=== PATIENT | female | born 1940 | race Caucasian/White ===

== ENCOUNTER 2017-12-12 12:50 | Day surgery (SDC) | payer MEDICARE ==
[~2017-12-12 12:50] MED LIST: HEPARIN SODIUM,PORCINE 5,000 UNIT/ML 1 ML VIAL SQ ONE; Pre Op ABX Message 1 EACH MISC MISCELLANE ONE
[2017-12-12] MEDS ORDERED: fentaNYL (PF) 50 MCG/ML 2 ML AMP IV PRN (13:26)
[2017-12-12] MEDS ORDERED: MIDAZOLAM 2 MG/2 ML VIAL IV PRN (13:26)
[2017-12-12] MEDS ORDERED: DEXAMETHASONE SOD PHOSPHATE 10 MG/ML 1 ML VIAL IV ONE (13:26)
[2017-12-12] MEDS ORDERED: LACTATED RINGERS 1,000 ML IV SCH (13:26)
[2017-12-12] MEDS ORDERED: ONDANSETRON 4 MG/2 ML VIAL IVP ONE (13:26)
[2017-12-12] MEDS ORDERED: LIDOCAINE 1% 20 ML VIAL (10MG/ML) FOR IV START INTRADERMA ONE (13:50)
[2017-12-12] MEDS ORDERED: fentaNYL (PF) 50 MCG/ML 2 ML AMP ONE (16:09)
[2017-12-12] MEDS ORDERED: LIDOCAINE 1% INJ 10MG/ML (20 ML MDV) ONE (16:09)
[2017-12-12] MEDS ORDERED: MIDAZOLAM 2 MG/2 ML VIAL ONE (16:09)
[2017-12-12] MEDS ORDERED: PROPOFOL 10 MG/ML 20 ML VIAL IV ONE (16:09)
[2017-12-12] MEDS ORDERED: ePHEDrine SULFATE/0.9% NACL/PF 50 MG/5 ML SYRINGE IV ONE (16:09)
[2017-12-12] MEDS ORDERED: SUCCINYLCHOLINE CHLORIDE 100 MG/5 ML SYR IV ONE (16:09)
[2017-12-12] MEDS ORDERED: ceFAZolin 1,000 MG VIAL IVPB ONE (16:35)
[2017-12-12] MEDS ORDERED: LACTATED RINGERS 1,000 ML IV ONE (16:42)
[2017-12-12] MEDS ORDERED: ONDANSETRON 4 MG/2 ML VIAL IVP PRN (17:08)
[2017-12-12] MEDS ORDERED: NALOXONE 0.4 MG/ML 1 ML VIAL IV PRN (17:08)
[2017-12-12] MEDS ORDERED: HYDROmorphone 0.5 MG/0.5 ML SYRINGE IVP PRN (17:08)
[2017-12-12] MEDS ORDERED: ACETAMINOPHEN TAB 325 MG TAB PO PRN (17:08)
--- NOTE | 2017-12-12 17:15 | P.OP ---
Date of Procedure: 12/12/17 Procedure(s) Performed: PREOPERATIVE DIAGNOSIS: Right arm hematoma POSTOPERATIVE DIAGNOSIS: Same PROCEDURE: Incision and drainage large right arm hematoma SURGEON: Sierra EBL: 15 mL new blood, 300 mL old clot ANESTHESIA: General COMPLICATIONS: None OPERATIVE PROCEDURE: Patient was placed in the operative table in the supine position. The right arm was prepped and draped in usual sterile fashion. A longitudinal incision was made overlying the hematoma site. Less than 1 cm below the skin surface a large hematoma and cavity was encountered. Proximally 3 under cc of bloody clots were removed. Cultures were taken. The area was irrigated thoroughly with saline. No active bleeding was seen. The wound was packed with a lightly moistened Kerlix roll. Sterile dressings were applied. DISPOSITION: Stable to recovery room
[2017-12-12] MEDS: LACTATED RINGERS 1,000 ML IV ONE (18:24)
[2017-12-12 20:15] VITALS: BMI 27.8
[2017-12-12] MEDS: HYDROcodone/APAP 5-325MG 1 EACH TAB PO PRN (20:16)
[2017-12-12] MEDS ORDERED: LATANOPROST 0.005% OPHTH DROPS 2.5 ML BTL BOTH EYES SCH (21:00)
[2017-12-12] MEDS ORDERED: SENNOSIDES 8.6 MG TAB PO SCH (21:00)
[2017-12-12] MEDS ORDERED: ATORVASTATIN 10 MG TAB PO SCH (21:00)
[2017-12-12] MEDS: CALCIUM CARB-VIT D 500MG-200UN 1 EACH TAB PO SCH (21:16)
[2017-12-12] MEDS: CITALOPRAM HYDROBROMIDE 20 MG TAB PO SCH (21:16)
[2017-12-12] MEDS: DIAZEPAM 5 MG TAB PO SCH (21:16)
[2017-12-12] MEDS: amLODIPine 5 MG TAB PO SCH (21:16)
[2017-12-13] MEDS: HYDROcodone/APAP 10-325MG 1 EACH TAB PO PRN ×2 (00:28→06:32)
[2017-12-13] MEDS: HEPARIN SODIUM,PORCINE 5,000 UNIT/ML 1 ML VIAL SQ SCH ×2 (00:28→10:38)
[2017-12-13] MEDS: LACTATED RINGERS 1,000 ML IV ONE (06:34)
[2017-12-13] MEDS ORDERED: PANTOPRAZOLE 40 MG TABLET PO SCH (07:30)
[2017-12-13] MEDS ORDERED: MONTELUKAST 10 MG TAB PO SCH (09:00)
[2017-12-13] MEDS ORDERED: POTASSIUM CHLORIDE ER 20 MEQ TAB.ER PO SCH (09:00)
[2017-12-13] MEDS ORDERED: ALLOPURINOL 300 MG TAB PO SCH (09:00)
[2017-12-13] MEDS ORDERED: FUROSEMIDE 40 MG TAB PO SCH (09:00)
[2017-12-13 09:11] VITALS: BP 128/65; PULSE 84; RESP 16; TEMP 98.8
--- NOTE | 2017-12-13 10:35 | P.DS ---
<Alecia Bustos - Last Filed: 12/13/17 10:23> Providers Expected date of discharge: 12/13/17 Attending physician: Kirit Esquivel Primary care physician: [facility] Hospital Course: 77-year-old female was admitted on elective basis to undergo an incision and drainage of a large right arm hematoma. Operative report reviewed indicated 300 mL's of an old clot and 15 urinalysis of new blood was removed. Patient tolerated the procedure. On the day of discharge the dressing was changed to the right forearm small amount of bloody drainage noted the packing was removed with new lightly moistened Kerlix roll placed wrapped with Kerlix and an Vicente wrap. Patient was felt to be clinically stable and appropriate proceed with a discharge to home. Impression discharge diagnosis Status post incision and drainage of a large right arm hematoma The above impression and plan of care have been discussed and directed by signing physician. Alecia Bustos nurse practitioner acting as scribe for signing physician. Plan - Discharge Summary New Discharge Prescriptions: Continue Aspirin EC [Ecotrin Low Dose] 81 mg PO DAILY Ergocalciferol [Vitamin D2 (DRISDOL)] 50,000 unit PO Q14D Calcium Carb-Vit D 500Mg-200Un [Oscal 500+D] 1 each PO BID Simvastatin [Zocor] 20 mg PO HS Montelukast [Singulair] 10 mg PO DAILY Latanoprost Ophth [Xalatan 0.005%] 1 drops BOTH EYES HS Furosemide [Lasix] 40 mg PO DAILY Diazepam [Valium] 5 mg PO HS Sennosides [Senokot] 8.6 mg PO HS Omeprazole [PriLOSEC] 20 mg PO AC-BID amLODIPine [Norvasc] 5 mg PO BID Potassium Chloride ER [K-Dur 20] 20 meq PO DAILY Multivitamin/Iron/Folic Acid [Centrum Complete Multivit Tab] 1 each PO DAILY Citalopram Hydrobromide [CeleXA] 20 mg PO BID Doxycycline Hyclate 100 mg PO DAILY Allopurinol 300 mg PO DAILY Cephalexin [Keflex] 250 cap PO TID Hydrocodone/Acetaminophen [Assonet 10-325] 1 each PO Q6H PRN #15 tablet PRN Reason: Pain Discharge Medication List Aspirin EC [Ecotrin Low Dose] 81 mg PO DAILY 05/15/14 [History] Calcium Carb-Vit D 500Mg-200Un [Oscal 500+D] 1 each PO BID 05/15/14 [History] Citalopram Hydrobromide [CeleXA] 20 mg PO BID 05/15/14 [History] Diazepam [Valium] 5 mg PO HS 05/15/14 [History] Ergocalciferol [Vitamin D2 (DRISDOL)] 50,000 unit PO Q14D 05/15/14 [History] Furosemide [Lasix] 40 mg PO DAILY 05/15/14 [History] Latanoprost Ophth [Xalatan 0.005%] 1 drops BOTH EYES HS 05/15/14 [History] Montelukast [Singulair] 10 mg PO DAILY 05/15/14 [History] Multivitamin/Iron/Folic Acid [Centrum Complete Multivit Tab] 1 each PO DAILY [History] Omeprazole [PriLOSEC] 20 mg PO AC-BID 05/15/14 [History] Potassium Chloride ER [K-Dur 20] 20 meq PO DAILY 05/15/14 [History] Sennosides [Senokot] 8.6 mg PO HS 05/15/14 [History] Simvastatin [Zocor] 20 mg PO HS 05/15/14 [History] amLODIPine [Norvasc] 5 mg PO BID 05/15/14 [History] Allopurinol 300 mg PO DAILY 02/03/15 [History] Doxycycline Hyclate 100 mg PO DAILY 02/03/15 [History] Cephalexin [Keflex] 250 cap PO TID 12/12/17 [History] Hydrocodone/Acetaminophen [Assonet 10-325] 1 each PO Q6H PRN #15 tablet 12/13/17 [ Rx] Follow up Appointment(s)/Referral(s): Kirit Esquivel MD [Medical Doctor] - 12/16/17 2:40 pm Activity/Diet/Wound Care/Special Instructions: Continue diet as tolerated. fluid encouraged. Visiting nurses to do Daily dressing changes to the right forearm wet-to-dry Kerlix packing with kerlex wrap with Vicente wrap.Keep right arm elevated when able. Call physician with any other questions comments concerns, worsening or returning symptoms, fever 101.1 or higher, pain that is not controlled by medication excessive bleeding from wound. puss or smelly like drainage from wound. Discharge Disposition: HOME WITH HOME HEALTH SERVICES <Kirit Esquivel - Last Filed: 12/13/17 13:23> Hospital Course: As above. Patient doing well today. Minimal pain. She was actually discharge prior to my arrival. She will follow-up in 1 week.
[2017-12-13] MEDS: amLODIPine 5 MG TAB PO SCH (10:39)
[2017-12-13] MEDS: CITALOPRAM HYDROBROMIDE 20 MG TAB PO SCH ×2 (10:39→10:51)
[2017-12-13] MEDS: CALCIUM CARB-VIT D 500MG-200UN 1 EACH TAB PO SCH (10:39)
[2017-12-13] MEDS: DIAZEPAM 5 MG TAB PO SCH (10:48)
[2017-12-13] MEDS: HYDROcodone/APAP 5-325MG 1 EACH TAB PO PRN (10:48)
[2017-12-13] MEDS ORDERED: MULTIVITAMINS, THERA 1 EACH TAB PO SCH (12:00)
[2017-12-25] MEDS ORDERED: ERGOCALCIFEROL 50,000 UNIT CAP PO SCH (12:00)
== END 2017-12-13 13:05 | disposition home health service (06) ==
LOC: OR 12:50 → 6PED 16:43 → OR 12-13 13:05
PROVIDERS: ATTEND Surgery
DX: S50.11XA Contusion of right forearm, initial encounter (principal); E03.9 Hypothyroidism, unspecified; E78.00 Pure hypercholesterolemia, unspecified; M10.9 Gout, unspecified; F32.9 Major depressive disorder, single episode, unspecified; N28.9 Disorder of kidney and ureter, unspecified; M81.0 Age-related osteoporosis without current pathological fracture; I05.9 Rheumatic mitral valve disease, unspecified; I65.29 Occlusion and stenosis of unspecified carotid artery; I11.0 Hypertensive heart disease with heart failure; I50.9 Heart failure, unspecified; J44.9 Chronic obstructive pulmonary disease, unspecified; F41.9 Anxiety disorder, unspecified; K21.9 Gastro-esophageal reflux disease without esophagitis; E66.9 Obesity, unspecified; Z68.27 Body mass index [BMI] 27.0-27.9, adult; Z88.0 Allergy status to penicillin; Z91.040 Latex allergy status; Z88.2 Allergy status to sulfonamides; Z88.8 Allergy status to other drugs, medicaments and biological substances; Z79.891 Long term (current) use of opiate analgesic; Z79.899 Other long term (current) drug therapy; X58.XXXA Exposure to other specified factors, initial encounter
CPT/HCPCS: 94760; 87070; 87205; 87075; 10140; J2250; J1644 ×2; J1100; J2405; J0690; J2001; J3010; J0330; J2704

== ENCOUNTER → 2023-07-08 | Outpatient (CLI) | payer MEDICARE ==
--- NOTE | 2023-07-08 17:57 | BD ---
EXAMINATION TYPE: Axial Bone Density DATE OF EXAM: 07/08/2023 CLINICAL HISTORY: 82 years old Female. ICD-10 CODE: M81.0 AGE RELATED OSTEOPOROSIS Height: 5 ft 1 in Weight: 144 FRAX RISK QUESTIONS: Alcohol (3 or more units per day): no Family History (Parent hip fracture): no Glucocorticoids (More than 3mos): no (Ex: prednisone, prednisolone, methylprednisolone, dexamethasone, and hydrocortisone). History of Fracture in Adulthood: no Secondary Osteoporosis: 1. Type 1 Diabetes: no 2. Hyperthyroidism: no 3. Menopause before 45: yes 4. Malnutrition: no 5. Chronic liver disease: no Rheumatoid Arthritis: no Current Tobacco Use: no RISK FACTORS HISTORY OF: Surgery to Spine/Hip(right/left)/Wrist (right/left): lumbar surg When: unsure MEDICATIONS: Thyroid Medications: none Osteoporosis Medications: none EXAM MEASUREMENTS: Bone mineral densitometry was performed using the [employer] System. Bone mineral density as measured about the Lumbar spine is: ----- L1-L4(G/cm2): Bone mineral density about the R hip (g/cm2): 0.796 Bone mineral density about the L hip (g/cm2): 0.753 T Score values are as follows: -----R Neck: -1.7 -----L Neck: -2.1 -----R Total: -2.2 -----L Total: -2.3 Z Score values are as follows: -----R Neck: 0.6 -----L Neck: 0.2 -----R Total: -0.1 -----L Total: -0.1 Bone mineral density has: decreased -5.2 % since study of: 2014 Bone mineral density about the L Wrist (g/cm2): 0.300 T Score values are as follows: -----Dist. R+U: -5.3 -----Prox. R+U: -5.4 -----Radius total: -6.2 Z Score values are as follows: -----Dist. R+U: -2.3 -----Prox. R+U: -2.3 -----Radius total: -3.2 first time wrist has been done FRAX%s: The graph provided illustrates a 23.0 % chance for a major osteoporotic fx and a 6.8 % chance for the hips probability for fx in 10 years time. IMPRESSION: Osteoporosis (T Score less than -2.5). There is increased fracture risk and therapy is usually indicated based on age. Re-Screen 1-2 years. NOTE: T-SCORE=SD OF THE YOUNG ADULT MEAN.
--- NOTE | 2023-07-11 08:54 | MM ---
Reason for Exam: Screening (asymptomatic). Last mammogram was performed 7 year(s) and 1 month(s) ago. Patient History: Menarche at age 11. First Full-Term at age 18. Left ovary removed at age 44. Right ovary removed at age 44. Hysterectomy at age 44. Postmenopausal. Patient has history of breast feeding. Estrogen for 20 years, 2 months. 08/31/2013, Benign Core Biopsy on the right side. Paternal cousin had breast cancer, age 36. Paternal cousin had breast cancer, age 50. Maternal aunt had breast cancer, age 40. Risk Values: Keerthi 5 year model risk: 1.3%. NCI Lifetime model risk: 1.6%. Prior Study Comparison: 08/18/2013 Bilateral Screening Mammogram, [facility]. 08/20/2013 Right Diagnostic Mammogram, [facility]. 02/24/2015 Bilateral Screening Mammogram, [facility]. 05/22/2016 Bilateral Screening Mammogram, [facility]. Tissue Density: The breast tissue is heterogeneously dense. This may lower the sensitivity of mammography. Findings: Analyzed By CAD. There is no suspicious group of microcalcifications or new suspicious mass. Overall Assessment: Negative, BI-RAD 1 Management: Screening Mammogram of both breasts in [address] [facility] will attempt to contact patient to return for supplemental views and ultrasound if indicated. Patient should continue monthly self-breast exams. A clinical breast exam by your physician is recommended on an annual basis. This exam should not preclude additional follow-up of suspicious palpable abnormalities. Note on Keerthi scores and lifetime risk: 1. A Keerthi score greater than 3% is considered moderate risk. If this is the case, consider specialist referral to assess eligibility for a risk reducing agent. 2. If overall lifetime risk for the development of breast cancer is 20% or higher, the patient may qualify for future screening with alternating mammogram and breast MRI. Electronically signed and approved by: Anjum Mars DO
== END | disposition home or self-care (01) ==
LOC: RADMAMWWP 12:40
PROVIDERS: ATTEND Internal Medicine Geriatric Medicine
DX: Z12.31 Encounter for screening mammogram for malignant neoplasm of breast (principal); M85.89 Other specified disorders of bone density and structure, multiple sites; M81.0 Age-related osteoporosis without current pathological fracture; Z80.3 Family history of malignant neoplasm of breast; Z78.0 Asymptomatic menopausal state
CPT/HCPCS: 77063; 77067; 77080